=== PATIENT | female | born 1940 | race Caucasian/White ===

== ENCOUNTER → 2016-08-02 | Outpatient (CLI) | payer MEDICARE, OTHER ==
[2016-08-05 19:51] LABS: AMMONIUM URINE 15 mEq/day (14-62); BRUSHITE 0.51 (< 2.00); CALCIUM OXALATE 3.36 (< 2.00); CITRATE URINE 717 mg/day (> 320); COMMENTS ND (()); MAGNESIUM URINE 83 mg/day (> 60); OXALATE URINE 24 mg/day (< 45); PHOPHORUS URINE 490 mg/day (< 1100); SODIUM URATE 0.95 (< 2.00); STRUVITE 0.08 (< 75.00); SULFATE URINE 7 (< 30); SUSPECTED PROBLEM IS Uric Acid Lithiasis (()); URIC ACID URINE 224 mg/day (< 700)
== END ==
LOC: OLAB 07:53
PROVIDERS: ATTEND Urology
DX: E83.40 Disorders of magnesium metabolism, unspecified (principal)
CPT/HCPCS: 36415; 82340; 82507; 82570; 83735; 83935; 83945; 83986; 84105; 84133; 84300; 84560

== ENCOUNTER → 2016-11-22 | Outpatient (CLI) | payer MEDICARE ==
[~2016-11-22] MED LIST: CALC600T55 CHEW; CITA20TA4 PO; DONE10TA7 PO; INFL1INJ52 IM
[2016-11-22 13:21] LABS: HEMATOCRIT 39.1 % (35.0-46.0); MEAN CELL VOLUME 90.4 FL (80.0-100.0); MEAN CORPUSCULAR HGB CONC 33.2 % (32.0-36.0); PLATELET COUNT 207 TH/MM3 (150-450); RED BLOOD COUNT 4.32 MIL/MM3 (4.00-5.30); RED CELL DISTRIBUTION WIDTH 12.9 % (11.6-17.2); REVIEW FLAG FINAL; WHITE BLOOD COUNT 3.4 TH/MM3 (4.0-11.0)
[2016-11-22 13:39] LABS: ANION GAP 4 MEQ/L (5-15); AST (GOT) 16 U/L (15-37); BICARBONATE 30.5 MEQ/L (21.0-32.0); BLOOD UREA NITROGEN 20 MG/DL (7-18); CHLORIDE 105 MEQ/L (98-107); GLOMERULAR FILTRATION RATE 66 ML/MIN (>89); GLUCOSE,FASTING 62 MG/DL (74-99); SODIUM (NA) 139 MEQ/L (136-145)
[2016-11-22 13:44] LABS: ALKALINE PHOSPHATASE 75 U/L (45-117); ALT (GPT) 18 U/L (10-53); TOTAL BILIRUBIN ADULT 0.5 MG/DL (0.2-1.0)
== END ==
LOC: OLAB 10:11
PROVIDERS: ATTEND Internal Medicine Geriatric Medicine
DX: G30.9 Alzheimer's disease, unspecified (principal)
CPT/HCPCS: 36415; 80053; 85027

== ENCOUNTER → 2016-12-14 | Outpatient (CLI) | payer MEDICARE | LOC: OLAB 10:55 | PROVIDERS: ATTEND Internal Medicine Geriatric Medicine | DX: Z12.11 Encounter for screening for malignant neoplasm of colon (principal) | CPT/HCPCS: 82272 ==

== ENCOUNTER → 2017-01-20 | Outpatient (CLI) | payer MEDICARE ==
[2017-01-20 12:17] LABS: AUTOMATED NEUTROPHIL # 2.2 TH/MM3 (1.8-7.7); BASOPHIL % 0.6 % (0.0-2.0); EOSINOPHIL # 0.1 TH/MM3 (0-0.4); EOSINOPHIL % 2.1 % (0.0-4.0); HEMATOCRIT 42.9 % (35.0-46.0); HEMO FLAGS DIFF FINAL; LYMPH % 25.2 % (9.0-44.0); MEAN CELL VOLUME 89.3 FL (80.0-100.0); MEAN CORPUSCULAR HEMOGLOBIN 29.3 PG (27.0-34.0); MEAN CORPUSCULAR HGB CONC 32.8 % (32.0-36.0); MONO % 12.3 % (0.0-8.0); NEUT % 59.8 % (16.0-70.0); PLATELET COUNT 228 TH/MM3 (150-450); RED CELL DISTRIBUTION WIDTH 12.6 % (11.6-17.2); WHITE BLOOD COUNT 3.8 TH/MM3 (4.0-11.0)
== END ==
LOC: OLAB 11:15
PROVIDERS: ATTEND Internal Medicine Geriatric Medicine
DX: R41.3 Other amnesia (principal); D72.819 Decreased white blood cell count, unspecified; G30.9 Alzheimer's disease, unspecified; Z13.21 Encounter for screening for nutritional disorder
CPT/HCPCS: 36415; 82306; 82607; 82746; 84443; 85025

== ENCOUNTER → 2017-01-26 | Outpatient (CLI) | payer MEDICARE | LOC: OLAB 12:01 | PROVIDERS: ATTEND Family Medicine | DX: D72.819 Decreased white blood cell count, unspecified (principal); R41.3 Other amnesia; G30.9 Alzheimer's disease, unspecified; Z13.21 Encounter for screening for nutritional disorder; Z12.11 Encounter for screening for malignant neoplasm of colon | CPT/HCPCS: 82272 ==